=== PATIENT | male | born 1985 | race Caucasian/White ===

== ENCOUNTER 2017-03-12 09:57 | Emergency (ER) | payer MEDICAID ==
[~2017-03-12] VITALS: Ht 180.3 cm; Wt 75.9 kg
[~2017-03-12 09:57] MED LIST: CYCL10 PO; NAPR-58 PO
[2017-03-12] MEDS ORDERED: DIVA500T35 PO (10:08)
[2017-03-12] MEDS ORDERED: GABA-531 PO (10:08)
[2017-03-12] MEDS ORDERED: TRAZ-147 PO (10:08)
[2017-03-12 11:45] VITALS: BP 128/84
[2017-03-12] MEDS ORDERED: DEXAMETHASONE SOD PHOS 4 MG/ML 5 ML VIAL IM ONE (12:00)
== END 2017-03-12 13:01 | disposition home or self-care (01) ==
LOC: EMS 10:01
DX: L50.0 Allergic urticaria (principal); L29.9 Pruritus, unspecified; F17.210 Nicotine dependence, cigarettes, uncomplicated
CPT/HCPCS: 96372; 99283; J1100